=== PATIENT | female | born 1950 | race Caucasian/White ===

== ENCOUNTER 2024-03-05 18:55 | Emergency (ER) | payer MEDICARE, OTHER ==
[~2024-03-05] VITALS: Ht 165.1 cm; Wt 81.6 kg
[2024-03-05] MEDS ORDERED: DICLOFENAC TOPICAL TOP (19:11)
[2024-03-05] MEDS ORDERED: METO50TA16 PO (19:11)
[2024-03-05] MEDS ORDERED: AMLO-212 PO (19:11)
[2024-03-05] MEDS ORDERED: FENO145T21 PO (19:11)
[2024-03-05] MEDS ORDERED: FURO20TA4 PO (19:11)
[2024-03-05] MEDS ORDERED: DEXL60CA3 PO (19:11)
[2024-03-05] MEDS ORDERED: ONDA8TAB65 PO (19:11)
[2024-03-05 19:26] LABS: BASOPHILS # (AUTO) 0.1 K/UL (0.0-0.2); BASOPHILS % (AUTO) 0.8 % (0.0-2.0); EOSINOPHILS # (AUTO) 0.2 K/uL (0.0-0.7); EOSINOPHILS % (AUTO) 2.3 % (0.0-7.0); HEMATOCRIT 40.7 % (31.2-41.9); MEAN CORPUSCULAR HEMOGLOBIN 25.8 uug (24.7-32.8); MEAN CORPUSCULAR HGB CONC 32 g/dL (32.3-35.6); MEAN CORPUSCULAR VOLUME 80.5 fL (75.5-95.3); MONOCYTES # (AUTO) 0.6 K/uL (0.1-1.30); MONOCYTES % (AUTO) 6.1 % (0.0-11.0); NEUTROPHILS # (AUTO) 7.1 K/uL (1.8-8.9); NEUTROPHILS % (AUTO) 70.8 % (38.5-71.5); PLATELET COUNT (AUTO) 256 K/uL (179-408); RED BLOOD CELL COUNT(AUTO) 5.05 MIL/uL (3.63-4.92); RED CELL DISTRIBUTION WIDTH 15.4 % (12.3-17.7)
[2024-03-05 19:32] LABS: DIFFERENTIAL COMMENT 1
[2024-03-05 19:37] LABS: CALCIUM 10.4 mg/dL (8.5-10.1); CARBON DIOXIDE 20 mmol/L (21-32); CHLORIDE 99 mmol/L (98-107); CREATININE 1.1 mg/dL (0.6-1.3); GLUCOSE 143 mg/dL (74-106); POTASSIUM 3.8 mmol/L (3.5-5.1); SODIUM SERUM 137 mmol/L (136-145); UREA NITROGEN, BLOOD 22 mg/dL (7-18)
[2024-03-05 19:48] LABS: LACTIC ACID 2.4 mmol/L (0.4-2.0)
[2024-03-05 19:51] LABS: ALANINE AMINOTRANSFERASE 36 U/L (14-59); ALBUMIN 4.5 g/dL (3.4-5.0); ALKALINE PHOSPHATASE 62 U/L (50-136); ASPARTATE AMINOTRANSFERASE 38 U/L (15-37); BILIRUBIN,DIRECT 0.2 mg/dL (0.0-0.2); BILIRUBIN,TOTAL 0.6 mg/dL (0.2-1.0); LIPASE 34 U/L (16-77); TOTAL PROTEIN, SERUM 8.2 g/dL (6.4-8.2)
[2024-03-05 20:10] LABS: *BILIRUBIN,URIN NEGATIVE (NEGATIVE); *BLOOD, URINE 1+ (NEGATIVE); *CLARITY,URINE CLEAR (CLEAR); *COLOR,URINE YELLOW (YELLOW); *KETONES,URINE NEGATIVE (NEGATIVE); *PROTEIN,URINE 1+ (NEGATIVE); *UROBILINOGEN,URINE 0.2 E.U./dl (NORMAL); LEUKOCYTE ESTERASE ,URINE 3+ (NEGATIVE); NITRITE, URINE POSITIVE (NEGATIVE); UGLUCOSE NEGATIVE (NEGATIVE)
[2024-03-05] MEDS ORDERED: CEFEPIME HCL 1 G VIAL ONE (20:14)
[2024-03-05] MEDS: CEFEPIME HCL 2 G in IV DEXTROSE 5% 100 ML IV ONE (20:15)
[2024-03-05] MEDS: IV NORMAL SALINE 1000 ML BAG IV ONE (20:15)
[2024-03-05 21:04] LABS: BACTERIA,URINE MODERATE /HPF (NONE SEEN); SQUAMOUS EPITHELIAL CELL,UR FEW /HPF (NONE SEEN)
[2024-03-05] MEDS ORDERED: HYDROMORPHONE 1 MG/1 ML DISP.SYRIN ONE (23:43)
[2024-03-05] MEDS ORDERED: METOCLOPRAMIDE HCL 10 MG/2 ML VIAL ONE (23:44)
[2024-03-05] MEDS: METOCLOPRAMIDE HCL 10 MG/2 ML VIAL IV ONE (23:55)
[2024-03-05] MEDS: HYDROMORPHONE 1 MG/1 ML DISP.SYRIN IV ONE (23:55)
[2024-03-06 08:47] VITALS: BP 161/71; TEMP 98.6; O2SAT 98
== END 2024-03-06 08:50 | disposition short-term general hospital (02) ==
LOC: ER 19:03
DX: K56.609 Unspecified intestinal obstruction, unspecified as to partial versus complete obstruction (principal); Z79.899 Other long term (current) drug therapy; Z20.822 Contact with and (suspected) exposure to COVID-19
CPT/HCPCS: 99285; 74176; 96365; 96375; 71045; 87426; 80076; 80048; 81001; 83880; 83690; 85025; 85730; 87040 ×2; 84484; 36415; 93005; 83605 ×2; 87086; J0692 ×2; J2765; J1170; J7040 ×2; A4606; A4663